=== PATIENT | female | born 1965 | race Caucasian/White ===

== ENCOUNTER 2018-04-15 14:28 | Emergency (ER) | payer MEDICAID, OTHER ==
[~2018-04-15] VITALS: Ht 162.6 cm; Wt 81.6 kg
[~2018-04-15 14:28] MED LIST: IBUP800T24
[2018-04-15 15:22] LABS: Basophils # (auto) 0 uL; Basophils % (auto) 0.3 % (0.0-2.0); Eosinophils # (auto) 0.1 uL; Eosinophils % (auto) 1.4 % (0.0-7.0); Hematocrit 42.4 % (36.0-46.0); Hemoglobin 14.3 g/dL (12.2-16.2); Lymphocytes # (auto) 1.2 uL; Mean Corpuscular Hemoglobin 30.6 pg (28.0-32.0); Mean Corpuscular Hgb Conc. 33.7 g/dL (32.0-36.0); Mean Corpuscular Volume 90.8 fL (80.0-100.0); Monocytes # (auto) 0.4 uL; Monocytes % (auto) 5.9 % (0.0-12.0); Neutrophils # (auto) 5.3 uL; Neutrophils % (auto) 75.4 % (37.0-80.0); Nucleated Red Blood Cells % 0.1 %; Platelet Count (auto) 249 10^3/uL (140-450); Red Blood Cells 4.67 10^6/uL (4.0-5.20); Red Cell Distribution Width 12.8 % (11.8-14.3)
[2018-04-15 15:35] LABS: INR 0.93 (0.9-1.15); Partial Thromboplastin Time 25.4 sec (23.78-33.04)
[2018-04-15 15:37] LABS: Albumin 3.6 g/dL (3.4-5.0); Calcium 9.1 mg/dL (8.5-10.1); Potassium 3.8 mmol/L (3.5-5.1)
[2018-04-15 15:40] LABS: BUN/Creatinine Ratio 10.1; Bilirubin, Total 0.5 mg/dL (0.2-1.0); Total Protein 7.8 g/dL (6.4-8.2)
[2018-04-15 16:06] LABS: Urine Bacteria NONE SEEN /hpf (None Seen); Urine Blood Negative /uL (Negative); Urine Specific Gravity 1.007 (1.001-1.035); Urine WBC 19 /hpf (0 - 5)
[2018-04-15] MEDS ORDERED: HYDROcodone-ACET 10/325MG TAB PO ONE (16:15)
[2018-04-15 17:20] VITALS: BP 128/67
== END 2018-04-15 17:26 | disposition home or self-care (01) ==
LOC: ER 14:32
DX: R51 Headache (principal); N39.0 Urinary tract infection, site not specified; Z86.73 Personal history of transient ischemic attack (TIA), and cerebral infarction without residual deficits; Z90.710 Acquired absence of both cervix and uterus; Z88.6 Allergy status to analgesic agent
CPT/HCPCS: 36415; 70450; 80053; 81001; 85025; 85610; 85730